=== PATIENT | male | born 1970 | race Caucasian/White ===

== ENCOUNTER 2020-12-11 09:16 | Emergency (ER) | payer OTHER ==
[~2020-12-11] VITALS: Ht 182.9 cm; Wt 99.8 kg
[~2020-12-11 09:16] MED LIST: VIVANCE
[2020-12-11 10:07] LABS: ABSOLUTE NEUTROPHILS 2.1 thou/uL (1.4-8.2); BASOPHILS 1.1 % (0.0-2.0); EOSINOPHILS 1.8 % (0.0-3.0); HEMATOCRIT 36.6 % (42.0-52.0); MCH 31.8 pg (26.0-34.0); MCHC 35.5 g/dL (28.0-37.0); MCV 89.4 fL (80.0-100.0); MONOCYTES 13.2 % (1.0-8.0); PLATELET COUNT 352 thou/uL (150-400); POLYS 47.9 % (36.0-66.0); RBC 4.09 mil/uL (4.50-6.00); RDW 12.7 % (10.5-14.5); WBC 4.5 thou/uL (4.0-11.0)
[2020-12-11 10:15] LABS: ANION GAP 14 mmol/L (7-16); BUN 9 mg/dL (7-18); CALCIUM 8.3 mg/dL (8.5-10.1); CHLORIDE 105 mmol/L (98-107); CO2 27 mmol/L (21-32); CREATININE 0.9 mg/dL (0.7-1.3); GLUCOSE 113 mg/dL (74-106); POTASSIUM 3.4 mmol/L (3.5-5.1); SODIUM 146 mmol/L (136-145)
[2020-12-11 10:21] LABS: ALBUMIN 3.9 g/dL (3.4-5.0); LIPASE 103 U/L (73-393); SALICYLATE < 2.8 mg/dL (2.8-20.0); SGOT 34 U/L (15-37); SGPT 61 U/L (16-63); TOTAL BILIRUBIN 0.2 mg/dL (0.2-1.0); TOTAL PROTEIN 7.2 g/dL (6.4-8.2)
[2020-12-11 10:21] LABS: URINE BILIRUBIN NEGATIVE (Negative); URINE BLOOD 1+ (Negative); URINE CLARITY CLEAR; URINE COLOR YELLOW; URINE GLUCOSE-RANDOM* NEGATIVE (Negative); URINE KETONES NEGATIVE (Negative); URINE LEUKOCYTES-REFLEX NEGATIVE (Negative); URINE NITRITE-REFLEX NEGATIVE (Negative); URINE PROTEIN (DIPSTICK) NEGATIVE (Negative); URINE SPECIFIC GRAVITY <= 1.005 (1.005-1.035); URINE UROBILINOGEN 0.2 E.U./dl (0.2-1.0)
[2020-12-11 10:28] LABS: AMP/METHAMP Negative (Negative); BARBITURATES Negative (Negative); BENZODIAZEPINES POSITIVE (Negative); COCAINE Negative (Negative); METHADONE Negative (Negative); OPIATES Negative (Negative); PCP Negative (Negative)
[2020-12-11 10:33] LABS: BACTERIA-REFLEX None Seen /HPF (None Seen); CASTS None Seen /LPF (None Seen); CRYSTALS None Seen /LPF (None Seen); SQUAMOUS None Seen /LPF (0-3); URINE RBC 1-2 Rare /HPF (NONE SEEN); URINE WBC-REFLEX None Seen /HPF (0-5)
[2020-12-11] MEDS ORDERED: ADDERALL 20 MG20 M1 PO (10:48)
[2020-12-11] MEDS ORDERED: LISINOPRIL10 MG PO (10:58)
[2020-12-11 13:20] VITALS: BP 143/55
== END 2020-12-11 13:20 | disposition home or self-care (01) ==
LOC: ER 09:16
PROVIDERS: Emergency Medicine
DX: F10.129 Alcohol abuse with intoxication, unspecified (principal); Z79.899 Other long term (current) drug therapy; Y90.8 Blood alcohol level of 240 mg/100 ml or more

== ENCOUNTER 2021-07-21 16:15 | Emergency (ER) | payer OTHER ==
[~2021-07-21] VITALS: Ht 182.9 cm; Wt 99.8 kg
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
[~2021-07-21 16:15] MED LIST changes: +ADDERALL 20 MG20 M1 PO; +LISINOPRIL10 MG PO
[2021-07-21 17:18] LABS: ABSOLUTE NEUTROPHILS 5.1 thou/uL (1.4-8.2); BASOPHILS 0.9 % (0.0-2.0); EOSINOPHILS 0.4 % (0.0-3.0); HEMATOCRIT 38.8 % (42.0-52.0); HEMOGLOBIN 12.8 gm/dL (14.0-18.0); MCH 30.8 pg (26.0-34.0); MCHC 32.9 g/dL (28.0-37.0); MCV 93.4 fL (80.0-100.0); MONOCYTES 5.4 % (1.0-8.0); PLATELET COUNT 300 thou/uL (150-400); POLYS 65.3 % (36.0-66.0); RBC 4.15 mil/uL (4.50-6.00); RDW 13.7 % (10.5-14.5); WBC 7.9 thou/uL (4.0-11.0)
[2021-07-21 17:29] LABS: CALCIUM 8.4 mg/dL (8.5-10.1); CREATININE 0.8 mg/dL (0.7-1.3); POTASSIUM 3.7 mmol/L (3.5-5.1)
[2021-07-21 17:34] LABS: ALBUMIN 3.8 g/dL (3.4-5.0); TOTAL BILIRUBIN 0.3 mg/dL (0.2-1.0)
[2021-07-21 18:39] LABS: URINE BILIRUBIN NEGATIVE (Negative); URINE BLOOD 1+ (Negative); URINE CLARITY CLEAR; URINE COLOR YELLOW; URINE GLUCOSE-RANDOM* NEGATIVE (Negative); URINE KETONES NEGATIVE (Negative); URINE LEUKOCYTES-REFLEX TRACE (Negative); URINE NITRITE-REFLEX NEGATIVE (Negative); URINE PROTEIN (DIPSTICK) NEGATIVE (Negative); URINE UROBILINOGEN 0.2 E.U./dl (0.2-1.0)
[2021-07-21 19:01] LABS: CASTS None Seen /LPF (None Seen); SQUAMOUS 0-3 Few /LPF (0-3); URINE WBC-REFLEX 0-5 Rare /HPF (0-5)
[2021-07-21 19:02] LABS: BACTERIA-REFLEX 1-9 Few /HPF (None Seen); CRYSTALS None Seen /LPF (None Seen); URINE RBC 1-2 Rare /HPF (NONE SEEN)
[2021-07-21 19:14] LABS: AMP/METHAMP POSITIVE (Negative); BARBITURATES Negative (Negative); BENZODIAZEPINES POSITIVE (Negative); COCAINE Negative (Negative); METHADONE Negative (Negative); OPIATES Negative (Negative); PCP Negative (Negative)
[2021-07-22 03:01] VITALS: BP 142/83
--- NOTE | 2021-07-22 07:47 | EKG ---
[address] [address] ELECTROCARDIOGRAM REPORT Name: TACO MORRISON Room #: DEP Carlos#: [id number] Admission: 07/21/21 Attend Phys: Discharge: 07/22/21 Date of : 74 Report #: [id number] [facility] ED Test Date: 2021-07-21 Test Time: 20:38:42 Pat Name: TACO MORRISON Department: Room: Gender: M Inventory Clerk: DALE : 1970 Requested By: Yumiko Biggs Order Number: [id number] MD: John Pierce Measurements Intervals [place] Rate: 137 P: IL: QRS: 65 QRSD: 81 T: 44 QT: 318 QTc: 480 Interpretive Statements Atrial fibrillation Borderline prolonged QT interval Compared to ECG 11/04/2013 16:17:47 Sinus tachycardia no longer present Electronically Signed On 07-22-2021 7:47:02 BRAND INSPECTOR by John Pierce [email or web address] <ELECTRONICALLY SIGNED> By: John Pierce MD, [facility] 07/22/21 0747 2038 37 John Pierce MD, FACC /EPI
== END 2021-07-22 03:22 | disposition home or self-care (01) ==
LOC: ER 16:15
PROVIDERS: Emergency Medicine
DX: F10.129 Alcohol abuse with intoxication, unspecified (principal); Z98.890 Other specified postprocedural states; Z79.899 Other long term (current) drug therapy

== ENCOUNTER 2021-07-22 06:05 | Emergency (ER) | payer OTHER ==
[~2021-07-22] VITALS: Ht 182.9 cm; Wt 99.8 kg
--- NOTE | ~2021-07-22 | EMS ---
[address] [address] EMS Patient Care Report Name: TACO MORRISON Room #: [facility] DORON Gonzalez#: [id number] Admission: 07/22/21 Attend Phys: Discharge: 07/22/21 Date of : 74 Report #: [id number] THIS REPORT FOR: //name// Report Transmitted: 07/26/2021 15:48 EMS Care Summary [place], [place]/[facility] Incident [id number] @ 07/22/2021 05:32 Incident Location [address] [place] [address] Patient TACO MORRISON Male, 51 Years 1970 Patient Address [address] [place] [address] Patient History Attention Deficit Hyperactivity Disorder (ADHD),Alcohol Abuse, Patient Allergies No known allergies, Patient Medications Adderall, Chief Complaint Overdose Alcohol Disposition Transported No Lights/[place] Dispatch Reason Unknown Problem/Person Down Transported To [facility] Narrative M36 dispatched on an unknown. M36 instructed to stage for PD. M36 arrived on scene to find PD assisting PT to stand outside of [facility]. PD stated PT found seated in restroom with "giant bottle of vodka." PT stated no chief complaint. PT found to be incontinent of urine. PT assisted to sit on stretcher by PD. PT secured with seatbelts and blanket. PT found to be wearing St [address] [address] EMS Patient Care Report Name: TACO MORRISON Room #: DEP [facility].#: [id number] Admission: 07/22/21 Attend Phys: Discharge: 07/22/21 Date of : 74 Report #: [id number] bracelet on left wrist. PT vitals assessed. PT medication found in PT pocket. PT vitals assessed during transport. PT report given. PT moved to hospital bed via three person sheet lift. PT care and belongings transferred to ER staff at [facility] without incident. M36 placed back in service. Initial Vitals @05:51P: 92,R: 18,BP: 146/90,Pain: 0/10,GCS: 14,Glucose: 81,SpO2: 97,Revised Trauma: 12, @05:55P: 88,R: 16,BP: 132/86,Pain: 0/10,GCS: 14,SpO2: 97,Revised Trauma: 12, Assessments @05:49MENTAL:Person Oriented,Place Oriented,Confused,SKIN:Cold,HEENT:LUNG SOUNDS:ABDOMEN:PELVIS//GI:Incontinence,EXTREMITIES:PULSE:Radial: 2+ Normal,NEURO:Slurred Speech,Abnormal Gait, Impression Overdose - Alcohol Procedures @05:49 ALS Assessment Response: UnchangedSucceeded Timeline 05:32,Call Received 05:32,Dispatch Notified 05:32,Dispatched 05:34,En Route 05:46,On Scene 05:48,At Patient 05:49,ALS Assessment,Response: UnchangedSucceeded, 05:51,BP: 146/90 M,PULSE: 92,RR: 18 R,SPO2: 97 Ox,ETCO2: ,B,PAIN: 0,GCS: 14, 05:55,BP: 132/86 M,PULSE: 88,RR: 16 R,SPO2: 97 Ox,ETCO2: ,BG: ,PAIN: 0,GCS: 14, 05:56,Depart Scene 06:02,At Destination 06:23,Call Closed Disclaimer v1.1 Copyright 2020 [employer] This EMS Care Summary contains data elements from the applicable legal record (which may be displayed differently). It is designed to provide pertinent information for the following purposes: continuity of care, clinical quality, and state data reporting. The complete legal record is available to ED staff and administrators of the receiving hospital in [employer]'s Patient Tracker. All data is provided "as is."
--- NOTE | ~2021-07-22 | EMS ---
[address] [address] EMS Patient Care Report Name: TACO MORRISON Room #: REG DORON Gonzalez#: [id number] Admission: 07/22/21 Attend Phys: Discharge: Date of : 74 Report #: [id number] THIS REPORT FOR: //name// Report Transmitted: 07/22/2021 06:01 EMS Care Summary [place], [place]/[facility] Incident [id number] @ 07/22/2021 05:32 Incident Location [address] [place] [address] Patient TACO MORRISON Male, 51 Years 1970 Patient Address [address] [place] [address] Patient History Attention Deficit Hyperactivity Disorder (ADHD),Alcohol Abuse, Patient Allergies No known allergies, Patient Medications Adderall, Chief Complaint Overdose Alcohol Disposition Transported No Lights/[place] Dispatch Reason Unknown Problem/Person Down Transported To [facility] Narrative M36 dispatched on an unknown. M36 instructed to stage for PD. M36 arrived on scene to find PD assisting PT to stand outside of [facility]. PD stated PT found seated in restroom with "giant bottle of vodka." PT stated no chief complaint. PT found to be incontinent of urine. PT assisted to sit on stretcher by PD. PT secured with seatbelts and blanket. PT found to be wearing St [address] [address] EMS Patient Care Report Name: TACO MORRISON Room #: REG [facility].#: [id number] Admission: 07/22/21 Attend Phys: Discharge: Date of : 74 Report #: [id number] bracelet on left wrist. PT vitals assessed. PT medication found in PT pocket. PT vitals assessed during transport. PT report given. PT moved to hospital bed via three person sheet lift. PT care and belongings transferred to ER staff at [facility] without incident. M36 placed back in service. Initial Vitals @05:51P: 92,R: 18,BP: 146/90,Pain: 0/10,GCS: 14,Glucose: 81,SpO2: 97,Revised Trauma: 12, @05:55P: 88,R: 16,BP: 132/86,Pain: 0/10,GCS: 14,SpO2: 97,Revised Trauma: 12, Assessments @05:49MENTAL:Person Oriented,Place Oriented,Confused,SKIN:Cold,HEENT:LUNG SOUNDS:ABDOMEN:PELVIS//GI:Incontinence,EXTREMITIES:PULSE:Radial: 2+ Normal,NEURO:Slurred Speech,Abnormal Gait, Impression Overdose - Alcohol Procedures @05:49 ALS Assessment Response: UnchangedSucceeded Timeline 05:32,Call Received 05:32,Dispatch Notified 05:32,Dispatched 05:34,En Route 05:46,On Scene 05:48,At Patient 05:49,ALS Assessment,Response: UnchangedSucceeded, 05:51,BP: 146/90 M,PULSE: 92,RR: 18 R,SPO2: 97 Ox,ETCO2: ,B,PAIN: 0,GCS: 14, 05:55,BP: 132/86 M,PULSE: 88,RR: 16 R,SPO2: 97 Ox,ETCO2: ,BG: ,PAIN: 0,GCS: 14, 05:56,Depart Scene 06:02,At Destination 06:23,Call Closed Disclaimer v1.1 Copyright 2020 [employer] This EMS Care Summary contains data elements from the applicable legal record (which may be displayed differently). It is designed to provide pertinent information for the following purposes: continuity of care, clinical quality, and state data reporting. The complete legal record is available to ED staff and administrators of the receiving hospital in [employer]'s Patient Tracker. All data is provided "as is."
[2021-07-22 12:31] VITALS: BP 139/76
== END 2021-07-22 12:32 | disposition home or self-care (01) ==
LOC: ER 06:05
DX: F10.129 Alcohol abuse with intoxication, unspecified (principal); Z98.890 Other specified postprocedural states; Z79.899 Other long term (current) drug therapy

== ENCOUNTER 2021-07-23 00:39 | Emergency (ER) | payer OTHER ==
[~2021-07-23] VITALS: Ht 175.3 cm; Wt 86.2 kg
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
[2021-07-23 03:25] VITALS: BP 98/64
== END 2021-07-23 03:29 | disposition home or self-care (01) ==
LOC: ER 00:39
DX: S01.21XA Laceration without foreign body of nose, initial encounter (principal); S05.42XA Penetrating wound of orbit with or without foreign body, left eye, initial encounter; Z79.899 Other long term (current) drug therapy; Y04.0XXA Assault by unarmed brawl or fight, initial encounter; Y93.89 Activity, other specified; Y92.89 Other specified places as the place of occurrence of the external cause; Y99.8 Other external cause status